=== PATIENT | female | born 1985 | race Caucasian/White ===

== ENCOUNTER 2021-09-10 15:47 | Emergency (ER) | payer OTHER, SELFPAY ==
--- NOTE | ~2021-09-10 | CT_ITS ---
EXAMINATION: CT soft tissue neck wo con DATE: 09/10/2021 17:28 INDICATION: Central and right lateral submandibular pain, recent oral surgery TECHNIQUE: Computed tomography (CT) of the neck was performed without intravenous contrast. The dose- length product (DLP) was 517.02 mGy-cm. Automated exposure control and iterative reconstruction techn ique were employed. COMPARISON: None FINDINGS: The absence of intravenous contrast limits examination. There is asymmetry in the right par apharyngeal space compared to the left. There is mild mass effect on the airway. There is mild lympha denopathy of the right neck. There is mild cervical spondylosis. IMPRESSION: 1. Asymmetry in the right parapharyngeal space which could reflect postsurgical phlegmon. 2. Right cervical lymphadenopathy, likely reactive. Reviewed, dictated and finalized at location F.
[2021-09-10 16:32] VITALS: BP 138/78; PULSE 118; RESP 20; TEMP 36.9; O2SAT 100
--- NOTE | 2021-09-10 17:18 | ED.GENADULT ---
HPI - General Adult General Chief complaint: Dental/Oral Stated complaint: ORAL SWELLING S/P SURGERY 27MAY Time Seen by Provider: 09/10/21 16:52 History of Present Illness HPI narrative: 35-year-old female presenting to the emergency department for evaluation of worsening dental pain and facial swelling after having a dental procedure on 09/02. Patient reports she has had worsening pain and swelling since after surgery. Patient has been in contact with her oral surgeon. Patient was evaluated by her surgeon on Monday and he felt that the amount of swelling she is experiencing was normal. Patient feels that the symptoms have worsened. Patient did have follow-up with her primary care physician yesterday and was started on penicillin. Presents emerged from today complaining of worsening. Related Data Allergies Allergy/AdvReac Type Severity Reaction Status Date / Time No Known Allergies Allergy Verified 09/10/21 18:25 Review of Systems Review of Systems: CONSTITUTIONAL: Denies fever, chills, or sweats. EYES: Denies visual changes, redness, or discharge. ENT: See HPI. Patient does report some difficulty swallowing due to pain. Patient is handling her secretions. CARDIOVASCULAR: Denies chest pain, palpitations, or edema. RESPIRATORY: No difficulty breathing or shortness of breath. GASTROINTESTINAL: Denies abdominal pain, nausea, vomiting, or diarrhea. GENITOURINARY: Denies dysuria or hematuria. SKIN: Denies rash or itching. MUSCULOSKELETAL: Denies back pain, joint pain, or myalgia. NEUROLOGIC: Denies headache, numbness, or weakness. Exam Narrative: APPEARANCE: Well appearing, no pain, no distress, well-nourished. HEAD: normocephalic, atraumatic. EYES: PERRLA/EOMI, conjunctivae clear. NOSE: Normal no drainage EARS:TMS clear with good light reflex. THROAT: Patient does have some trismus but posterior pharynx is well-appearing. NECK: Supple. No adenopathy, no masses. RESPIRATORY: Airway patent, respirations nonlabored. Clear to auscultation bilaterally, no rales, rhonchi, wheezing. CARDIOVASCULAR: Regular rate and rhythm without murmurs rubs or gallops. ABDOMINAL: Soft, nontender, nondistended, normal bowel sounds MUSCULOSKELETAL: Moves all extremities. Strength/ROM intact, No edema, No calf tenderness. NEURO: Alert. Cranial nerves II through XII intact. Grossly intact SKIN: Warm, dry. Normal Color Course Course Emergency Course: This case with the patient's oral surgeon, Dr. Dumont. He was reviewed with him. He was comfortable with the plan for IV fluids and to continue the clindamycin. Heart rate improved. Patient is resting comfortably. Patient has been more comfortable with the plan for discharge and close follow-up. Vital Signs Vital signs: Vital Signs Temperature 98.5 F 09/10/21 16:32 Pulse Rate 118 H 09/10/21 16:32 Respiratory Rate 20 09/10/21 16:32 Blood Pressure 138/78 09/10/21 16:32 Pulse Oximetry 100 09/10/21 16:32 Oxygen Delivery Room Air 09/10/21 16:32 Temperature 98.5 F 09/10/21 16:32 Pulse Rate 100 09/10/21 19:08 Respiratory Rate 18 09/10/21 19:08 Blood Pressure 138/56 L 09/10/21 19:08 Pulse Oximetry 100 09/10/21 19:08 Oxygen Delivery Room Air 09/10/21 18:06 Medical Decision Making Vital Signs Vital Signs: Vital Signs Temperature 98.5 F 09/10/21 16:32 Pulse Rate 118 H 09/10/21 16:32 Respiratory Rate 20 09/10/21 16:32 Blood Pressure 138/78 09/10/21 16:32 Pulse Oximetry 100 09/10/21 16:32 Oxygen Delivery Room Air 09/10/21 16:32 Temperature 98.5 F 09/10/21 16:32 Pulse Rate 100 09/10/21 19:08 Respiratory Rate 18 09/10/21 19:08 Blood Pressure 138/56 L 09/10/21 19:08 Pulse Oximetry 100 09/10/21 19:08 Oxygen Delivery Room Air 09/10/21 18:06 Lab Data Lab results reviewed: Yes I reviewed the patient's lab results. Result diagrams: 09/10/21 17:46 09/10/21 17:46 Labs: Lab Results 0
[2021-09-10 17:55] LABS: Basophils Percent Auto 0.2 % (0.2-1.2); Eosinophils Absolute Auto 0.1 K/mm3 (0-0.3); Eosinophils Percent Auto 0.3 % (0-4.4); Hematocrit 37.9 % (37.0-47.0); Hemoglobin 11.9 g/dL (12.0-15.0); Immature Granulocyte Absolute 0.05 K/mm3 (0.00-0.031); Immature Granulocyte Percent A 0.3 % (0-0.5); Lymphocytes Absolute Auto 1.04 K/mm3 (0.9-3.2); Lymphocytes Percent Auto 6.5 % (18.3-44.2); Mean Corpuscular HGB Conc 31.4 g/dl (32-36); Mean Corpuscular Hemoglobin 26.3 pg (26-34); Mean Corpuscular Volume 83.8 fl (80-100); Mean Platelet Volume 8.5 fl (7.4-10.4); Monocytes Absolute Auto 1.1 K/mm3 (0.1-0.6); Monocytes Percent Auto 6.9 % (2.6-8.5); Neutrophils Absolute Auto 13.7 K/mm3 (1.3-6.7); Neutrophils Percent Auto 85.8 % (45.5-73.1); Platelet Count Result 329 k/mm3 (150-375); Red Blood Count 4.52 M/mm3 (4.2-5.4); Red Cell Distribution Width 13.7 % (11.5-14.5)
[2021-09-10] MEDS: SODIUM CHLORIDE 0.9% IV 1,000 ML 999 ML IV CONT ×2 (17:56→19:06)
[2021-09-10] MEDS: HYDROmorphone HCL INJ (*CRX) 1 MG/ML SYR 0.5 MG IV PUSH (18:04)
[2021-09-10] MEDS: CLINDAMYCIN 600 MG/D5W 50 ML 600 MG/50 ML PIGGYBACK 100 MG IVPB (18:04)
[2021-09-10 18:05] LABS: Alanine Aminotransferase 10 U/L (6-35); Albumin Level 4.4 g/dL (3.5-5.1); Alkaline Phosphatase 103 U/L (38-126); Anion Gap 11 mmol/L (8-16); Aspartate Amino Transferase 17 U/L (14-36); Bilirubin,Total 0.4 mg/dL (0.2-1.3); Blood Urea Nitrogen 8 mg/dL (7-17); Calcium 9.1 mg/dL (8.4-10.2); Carbon Dioxide 25 mmol/L (22-30); Chloride 101 mmol/L (98-107); Estimated CRCL calculation 124 ml/min; Estimated Glomerular Filt Rate > 60; Glucose 81 mg/dL (65-110); Potassium 3.7 mmol/L (3.4-5.0); Sodium 137 mmol/L (137-145)
[2021-09-10 18:06] VITALS: BP 140/63; PULSE 105; RESP 13; O2SAT 99
[2021-09-10 18:06] LABS: Lactic Acid Reflex 0.8 mmol/L (0.7-2.0)
[2021-09-10] MEDS: KETOROLAC 15 MG/ML VIAL (*BKC) IV PUSH (19:06)
[2021-09-10 19:08] VITALS: BP 138/56; PULSE 100; RESP 18; O2SAT 100
--- NOTE | 2021-09-10 19:22 | PC.NURSE ---
Report received from Analisa BURGER and care of pt assumed at this time.
[2021-09-10 20:07] VITALS: BP 131/68; PULSE 104; RESP 16; O2SAT 100
== END 2021-09-10 21:25 | disposition home or self-care (01) ==
PROVIDERS: Emergency Provider Emergency Medicine; PCP Family Medicine
DX: R22.0 Localized swelling, mass and lump, head (principal)
CPT/HCPCS: 36415; 70490; 80053; 83605; 85025; 87040; 96361; 96365; 96375; 99284; J1170; J1885; J7030